=== PATIENT | male | born 1990 | race Caucasian/White ===

== ENCOUNTER 2020-01-20 04:02 | Emergency (ER) | payer OTHER ==
[~2020-01-20] VITALS: Ht 182.9 cm; Wt 104.3 kg
[2020-01-20] MEDS ORDERED: KETO10TA2 PO (08:46)
[2020-01-20] MEDS ORDERED: DUI500 PO (08:46)
[2020-01-20] MEDS ORDERED: MUPIROCIN22 GM TOP ×3 (08:47)
== END 2020-01-20 05:22 | disposition left against medical advice (07) ==
LOC: ER 04:02
DX: Z53.20 Procedure and treatment not carried out because of patient's decision for unspecified reasons (principal)

== ENCOUNTER 2020-01-20 06:22 | Emergency (ER) | payer OTHER ==
[~2020-01-20] VITALS: Ht 182.9 cm; Wt 104.3 kg
[2020-01-20] MEDS ORDERED: DUI500 PO (08:46)
[2020-01-20] MEDS ORDERED: KETO10TA2 PO (08:46)
[2020-01-20] MEDS ORDERED: MUPIROCIN22 GM TOP ×3 (08:47)
== END 2020-01-20 09:11 ==
LOC: ER 06:22
DX: L05.91 Pilonidal cyst without abscess (principal)